=== PATIENT | male | born 1995 | race Two or more races ===

== ENCOUNTER 2023-04-06 00:17 | Emergency (ER) | payer OTHER ==
[~2023-04-06] VITALS: Ht 175.3 cm; Wt 92.1 kg
[2023-04-06] MEDS ORDERED: DICLOFENAC SODI75 MG PO (01:53)
[2023-04-06] MEDS ORDERED: NORFLEX100MG PO (01:53)
== END 2023-04-06 02:30 | disposition home or self-care (01) ==
LOC: ER 00:17
DX: S13.4XXA Sprain of ligaments of cervical spine, initial encounter (principal); V43.52XA Car driver injured in collision with other type car in traffic accident, initial encounter; Y92.413 State road as the place of occurrence of the external cause; Y93.89 Activity, other specified